=== PATIENT | female | born 1960 | race Two or more races ===

== ENCOUNTER 2022-09-21 12:42 | Inpatient (IN) | payer MEDICARE, OTHER ==
[~2022-09-21] VITALS: Ht 134.6 cm; Wt 48.5 kg
--- NOTE | 2022-09-21 12:54 | NUR ---
ESTABLISHED EV ACCESS RIGHT AC 20G, BLOOD DRAWN AND SENT TO LAB INCLUDING CULTURES.
--- NOTE | 2022-09-21 12:56 | NUR ---
RECTAL TEMP 104.0 MD MADE AWARE.
--- NOTE | 2022-09-21 13:01 | NUR ---
DR. SAUCEDO AT BEDSIDE
--- NOTE | 2022-09-21 13:06 | NUR ---
COVID SWAB COLLECTED AND SENT TO LAB
[2022-09-21 13:24] LABS: BASOPHILS # (AUTO) 0.2 K/uL (0.0-0.2); BASOPHILS % (AUTO) 1.8 % (0.0-2.0); EOSINOPHILS % (AUTO) 0.3 % (0.0-6.0); HEMATOCRIT 30 % (33-45); HEMOGLOBIN 9.5 g/dL (11.5-14.8); LYMPHOCYTES # (AUTO) 4.2 K/uL (0.8-4.8); LYMPHOCYTES % (AUTO) 41.2 % (20.0-44.0); MEAN CORPUSCULAR HGB CONC 32 g/dl (31.0-36.0); MEAN CORPUSCULAR VOLUME 101 fL (82-100); MONOCYTES # (AUTO) 0.7 K/uL (0.1-1.30); MONOCYTES % (AUTO) 6.5 % (2.0-12.0); NEUTROPHILS # (AUTO) 5.1 K/uL (1.8-8.9); NEUTROPHILS % (AUTO) 50.2 % (43.0-81.0); PLATELET COUNT (AUTO) 451 K/uL (150-450); RED BLOOD CELL COUNT(AUTO) 2.97 MIL/uL (4.0-5.2); WHITE BLOOD COUNT (AUTO) 10.2 K/uL (4.3-11.0)
[2022-09-21 13:25] LABS: CALCIUM, SERUM 9.7 mg/dL (8.5-10.1); CARBON DIOXIDE 27 mmol/L (21-32); CHLORIDE 109 mmol/L (98-107); GLUCOSE 101 mg/dL (74-106); POTASSIUM 4.9 mmol/L (3.5-5.1); SODIUM SERUM 147 mmol/L (136-145); UREA NITROGEN, BLOOD 40 mg/dL (7-18)
[2022-09-21] MEDS ORDERED: PIPERACILLIN /TAZOBACTAM 3.375 G in IV D5W 50 ML IV ONE (13:30)
[2022-09-21] MEDS ORDERED: VANCOMYCIN 1 GM in IV D5W 250 ML IV ONE (13:30)
[2022-09-21 13:31] LABS: ALANINE AMINOTRANSFERASE 88 U/L (12-78); ALBUMIN 2.4 g/dL (3.4-5.0); ALKALINE PHOSPHATASE 311 U/L (46-116); ASPARTATE AMINOTRANSFERASE 561 U/L (15-37); BILIRUBIN,DIRECT 0.3 mg/dL (0.0-0.2); BILIRUBIN,TOTAL 0.6 mg/dL (0.2-1.0); TOTAL PROTEIN, SERUM 7.9 g/dL (6.4-8.2)
[2022-09-21] MEDS ORDERED: PROM6.256 PO (13:47)
[2022-09-21] MEDS ORDERED: BETH50TA2 PO (13:47)
[2022-09-21] MEDS ORDERED: AMLO5TAB4 PO (13:47)
[2022-09-21] MEDS ORDERED: BENZ1TAB7 PO (13:47)
[2022-09-21] MEDS ORDERED: OMEP20CA15 PO (13:47)
[2022-09-21] MEDS ORDERED: LEVO75TA PO (13:47)
--- NOTE | 2022-09-21 13:49 | NUR ---
CALCITONIN 3.57 RN & MADE AWARE
--- NOTE | 2022-09-21 14:29 | NUR ---
URINE SAMPLE OBTAINED
--- NOTE | 2022-09-21 14:39 | NUR ---
[facility] CALLED STOCK PARTS FABRICATOR PAGED.
[2022-09-21 15:26] LABS: BILIRUBIN,URINE NEGATIVE (NEGATIVE); COLOR,URINE YELLOW (YELLOW); LEUKOCYTE ESTERASE ,URINE NEGATIVE (NEGATIVE); NITRITE, URINE NEGATIVE (NEGATIVE); PROTEIN,URINE 1+ mg/dl (NEGATIVE); UGLUCOSE NEGATIVE (NEGATIVE); UROBILINOGEN,URINE 0.2 EU/dL (0.2)
--- NOTE | 2022-09-21 15:30 | NUR ---
DR SAUCEDO SPEAKING W/ DR SANCHEZ
[2022-09-21 15:48] LABS: RBC,URINE 0-2 /HPF (0-2)
[2022-09-21 15:49] LABS: BACTERIA,URINE Few /HPF (None Seen); SQUAMOUS EPITHELIAL CELL,UR Few /HPF (None Seen)
--- NOTE | 2022-09-21 15:59 | NUR ---
GOT BED 112 ADMITTING INFORMED.
--- NOTE | 2022-09-21 16:23 | NUR ---
REPORT GIVEN TO NAZIA FOR HYUN
--- NOTE | 2022-09-21 16:37 | NUR ---
PT TRANSFERRED TO [facility] VIA MARQUIS ACLS PROTOCOL. WARM HAND OFF GIVEN TO RN ASSIGNED.
[2022-09-21 17:00] VITALS: BP 89/52
--- NOTE | 2022-09-21 19:40 | NUR ---
RN CLOSING NOTE PATIENT RECEIVED FROM ER REPORT TAKEN FROM ER NURSE SILKE, PATIENT WITH RAC #20 INTACT, PATENT AND FLUSHING. PATIENT ON NONREBREATHER MASK 15 LITER OO2 SAT 97%. NO SKIN ISSUE JUST SACRAL REDNESS LOOKS LIKE DIAPER RASH. PHOTO TAKEN AND PLACED IN PATIENT'S CHART. PATIENT WITH DOWN SYNDROME A/O X0 ONLY OPEN EYED. PATIENT ON RESTRAINS SINCE SHE ARRIVED FROM ER. THE ER NURSE SILKE EXPLAINED THAT SHE REMOVES THE LINES WITHOUT RESTRAINS. ALL FALL AND SAFETY PRECAUTIONS IMPLEMENTED AND WILL ENDORSE THE PATIENT TO THE RED HAT OPEN STACK ADMINISTRATOR NURSE FOR HYUN.
--- NOTE | 2022-09-21 19:45 | NUR ---
TACTICAL DEBRIEFER OFFICER OPENING NOTES PATIENT SLEEPING IN BED, EASILY AWAKENED, PATIENT OPENS EYES AND SMILES WHEN NAME CALLED BUT NO VERBAL RESPONSE, PATIENT HAS DOWN SYNDROME. PATIENT STABLE ON NON-REBREATHER 15 L, NO S/S OF DISTRESS OR SOB NOTED, BREATHING EVEN AND UNLABORED. IV ACCESS ON RAC #20G INTACT AND FLUSHING WELL. AWAITING MD ORDERS. BILATERAL SOFT WRIST RESTRAINTS IN PLACE. SAFETY MEASURES IN PLACE: CALL LIGHT WITHIN REACH, SIDE RAILS UP X 3, BED LOCKED IN LOWEST POSITION, HOB ELEVATED, BED ALARM ON. WILL CONTINUE TO MONITOR PATIENT
[2022-09-21 20:00] VITALS: BP 97/50
[2022-09-21] MEDS ORDERED: MAGNESIUM HYDROXIDE 30 ML UDC PO PRN (20:30)
[2022-09-21] MEDS ORDERED: ACETAMINOPHEN 325 MG TABLET PO PRN (20:30)
[2022-09-21] MEDS ORDERED: ONDANSETRON HCL/PF 4 MG/2 ML VIAL IVP PRN (20:30)
[2022-09-21] MEDS ORDERED: Z GUARD REMEDY 4 OZ OINT TP PRN (20:30)
[2022-09-21] MEDS ORDERED: MAG HYDROX/AL HYDROX/SIMETH 30 ML UDC PO PRN (20:30)
[2022-09-21] MEDS: IV NS 0.9% 1,000 ML IV PRN (20:33)
[2022-09-21] MEDS ORDERED: CEFEPIME 1 GM in IV D5W 50 ML IV ONE (21:00)
--- NOTE | 2022-09-21 21:30 | NUR ---
SPREADING MACHINE OPERATOR NOTE SCHEDULED MAXIPIME 1 GM NOT IN CASSETTE, FAXED ORDER TO NURSING ELECTRIC SIGN ASSEMBLER, AWAITING MED
[2022-09-21] MEDS: ENOXAPARIN SODIUM 30 MG/0.3 ML DISP.SYRIN SQ SCH (22:20)
[2022-09-21] MEDS ORDERED: CEFEPIME 1 GM VIAL ONE (22:23)
--- NOTE | 2022-09-21 22:28 | NUR ---
REFINERY OPERATOR REFORMING UNIT NOTE SCHOOL SERVICES OFFICER ELSA BROUGHT MAXIPIME 1 GM FROM ER. WILL ADMINISTER ORDERED
[2022-09-22] VITALS: BP 98/50
[2022-09-22 04:00] VITALS: BP 105/62
--- NOTE | 2022-09-22 06:52 | NUR ---
RETAIL SALES PROFESSIONAL CLOSING NOTE PATIENT AWAKE IN BED, PATIENT OPENS EYES AND SMILES WHEN NAME CALLED BUT NO VERBAL RESPONSE, PATIENT HAS DOWN SYNDROME. PATIENT STABLE ON NON-REBREATHER 15 L, NO S/S OF DISTRESS OR SOB NOTED, BREATHING EVEN AND UNLABORED. IV ACCESS ON RAC #20G INTACT AND INFUSING NS @ 75 ML/HR. BILATERAL SOFT WRIST RESTRAINTS IN PLACE. NO SIGNIFICANT CHANGES THIS SHIFT, MEDICATIONS GIVEN ORDERED. SAFETY MEASURES IN PLACE: CALL LIGHT WITHIN REACH, SIDE RAILS UP X 3, BED LOCKED IN LOWEST POSITION, HOB ELEVATED, BED ALARM ON. WILL ENDORSE TO DAYSHIFT RN FOR CONTINUITY OF CARE
--- NOTE | 2022-09-22 07:12 | NUR ---
COPIER FIELD SERVICE TECHNICIAN OPENING NOTES Received pt awake in bed. Non verbal and unable to follow command, but pt opens eyes and smiles when you say her name. No signs os pain or discomfort at this time. Pt is currently on 15L non rebreather mask and tolerating it well. IV access on RAC 20G patent and intact with IVF running NS @75cc/hr. HOB elevated to 30-45 degrees. Siderails up at all times. Bed at it's lowest setting and locked. Call light within reach. Will continue to monitor.
[2022-09-22] MEDS: PANTOPRAZOLE 40 MG TABLET.DR PO SCH (07:28)
[2022-09-22] MEDS: LEVOTHYROXINE SODIUM 75 MCG TABLET PO SCH (07:28)
[2022-09-22 08:00] VITALS: BP 106/58
[2022-09-22] MEDS: BETHANECHOL CHLORIDE (25 MG) 25 MG TABLET PO SCH (08:49)
[2022-09-22] MEDS: BENZTROPINE MESYLATE (1 MG) 1 MG TABLET PO SCH (08:49)
[2022-09-22 09:03] LABS: BASOPHILS # (AUTO) 0.3 K/uL (0.0-0.2); BASOPHILS % (AUTO) 2.3 % (0.0-2.0); EOSINOPHILS % (AUTO) 1.1 % (0.0-6.0); HEMATOCRIT 27 % (33-45); HEMOGLOBIN 8.7 g/dL (11.5-14.8); LYMPHOCYTES # (AUTO) 2.5 K/uL (0.8-4.8); LYMPHOCYTES % (AUTO) 22.2 % (20.0-44.0); MEAN CORPUSCULAR HGB CONC 32 g/dl (31.0-36.0); MEAN CORPUSCULAR VOLUME 103 fL (82-100); MONOCYTES # (AUTO) 0.9 K/uL (0.1-1.30); MONOCYTES % (AUTO) 8.3 % (2.0-12.0); NEUTROPHILS # (AUTO) 7.4 K/uL (1.8-8.9); NEUTROPHILS % (AUTO) 66.1 % (43.0-81.0); PLATELET COUNT (AUTO) 400 K/uL (150-450); RED BLOOD CELL COUNT(AUTO) 2.66 MIL/uL (4.0-5.2); WHITE BLOOD COUNT (AUTO) 11.2 K/uL (4.3-11.0)
[2022-09-22 09:07] LABS: CALCIUM, SERUM 8.9 mg/dL (8.5-10.1); CREATININE 2.4 mg/dL (0.6-1.3); PHOSPHORUS 6.9 mg/dL (2.5-4.9); POTASSIUM 4.6 mmol/L (3.5-5.1)
[2022-09-22 09:20] LABS: THYROID STIMULATING HORMONE 2.002 uIU/mL (0.358-3.74)
[2022-09-22] MEDS: CEFEPIME 1 GM in IV D5W 50 ML IV SCH ×2 (10:06→20:29)
[2022-09-22] MEDS: IV NS 0.9% 1,000 ML IV PRN (10:35)
[2022-09-22 12:00] VITALS: BP 104/54
[2022-09-22 16:00] VITALS: BP 102/44
[2022-09-22] MEDS: IV 1/2NS 1000 ML 1,000 ML IV SCH (16:06)
--- NOTE | 2022-09-22 18:30 | NUR ---
EXECUTIVE ACCOUNT MANAGER CLOSING NOTES All due meds and tx given as ordered. Pt tolerated everything well. All needs attended to. Pt is currently on simple mask 10L and tolerating it well. IV access on RAC 20g patent and intact running IVF 1/2 NS @ 75cc/hr. HOB elevated to 30-45 degrees. Siderails up at all times. Call light within reach. Will endorse to oncoming nurse.
[2022-09-22 20:00] VITALS: BP 102/56
[2022-09-22] MEDS: ENOXAPARIN SODIUM 30 MG/0.3 ML DISP.SYRIN SQ SCH (20:29)
[2022-09-23] VITALS (7 sets, daily range): BP systolic 83–97; BP diastolic 47–65
[2022-09-23] MEDS: IV 1/2NS 1000 ML 1,000 ML IV SCH ×2 (05:20→19:10)
[2022-09-23] MEDS: LEVOTHYROXINE SODIUM 75 MCG TABLET PO SCH (06:24)
[2022-09-23] MEDS: PANTOPRAZOLE 40 MG TABLET.DR PO SCH (07:30)
--- NOTE | 2022-09-23 07:30 | NUR ---
RN notes Morning med hold due to pt being NPO
[2022-09-23 08:12] LABS: CALCIUM, SERUM 8.5 mg/dL (8.5-10.1); CREATININE 2.1 mg/dL (0.6-1.3)
--- NOTE | 2022-09-23 09:15 | NUR ---
WOUND CARE CONSULT: PT PRESENTS WITH RASH TO PERINEUM AND BUTTOCKS, PRESENT ON ADMISSION. RECOMMENDATIONS MADE FOR SKIN PROTECTION. DISCUSSED WITH NURSING STAFF. MD IN AGREEMENT WITH PLAN OF CARE.
[2022-09-23] MEDS: BETHANECHOL CHLORIDE (25 MG) 25 MG TABLET PO SCH (09:22)
[2022-09-23] MEDS: BENZTROPINE MESYLATE (1 MG) 1 MG TABLET PO SCH (09:25)
[2022-09-23] MEDS: CEFEPIME 1 GM in IV D5W 50 ML IV SCH ×3 (10:00→21:05)
[2022-09-23] MEDS ORDERED: VANCOMYCIN 1 GM in IV D5W 250 ML IV SCH (14:00)
[2022-09-23] MEDS: CLOTRIMAZOLE 1% 15 GM TUBE TP SCH (17:19)
--- NOTE | 2022-09-23 19:30 | NUR ---
RN opening notes Pt is laying in bed comfortably watching TV. Pt is alert and orientedX1. On 5 L NC. No SOB. No S/S of distress noted. Tele monitor showed S. rhytm. IV site at RAC# 20 is clean, intact and infusing well 1/2 NS @ 75 ml/hr. purewick is inplaced. Bilateral soft wrists restraint is inplaced, skin is warm to touch, circulation is check Q 2hr. safety precautions is maintained. bed at low position, brakes locked, side rails upsX3, hob elevated and call light is within reach. will continue to monitor.
[2022-09-23] MEDS: ENOXAPARIN SODIUM 30 MG/0.3 ML DISP.SYRIN SQ SCH (20:56)
[2022-09-24] VITALS (7 sets, daily range): BP systolic 96–115; BP diastolic 51–74
[2022-09-24 06:08] LABS: ALBUMIN 1.9 g/dL (3.4-5.0); BILIRUBIN,TOTAL 0.7 mg/dL (0.2-1.0); CALCIUM, SERUM 8.8 mg/dL (8.5-10.1); CREATININE 1.9 mg/dL (0.6-1.3); MAGNESIUM 2.9 mg/dL (1.8-2.4); PHOSPHORUS 4.6 mg/dL (2.5-4.9); POTASSIUM 4.1 mmol/L (3.5-5.1); TOTAL PROTEIN, SERUM 6.6 g/dL (6.4-8.2)
[2022-09-24 06:11] LABS: BASOPHILS # (AUTO) 0.1 K/uL (0.0-0.2); BASOPHILS % (AUTO) 0.6 % (0.0-2.0); EOSINOPHILS % (AUTO) 1.1 % (0.0-6.0); HEMATOCRIT 25 % (33-45); HEMOGLOBIN 7.7 g/dL (11.5-14.8); LYMPHOCYTES # (AUTO) 2.4 K/uL (0.8-4.8); LYMPHOCYTES % (AUTO) 24.2 % (20.0-44.0); MEAN CORPUSCULAR HGB CONC 32 g/dl (31.0-36.0); MEAN CORPUSCULAR VOLUME 105 fL (82-100); MONOCYTES # (AUTO) 0.7 K/uL (0.1-1.30); MONOCYTES % (AUTO) 6.5 % (2.0-12.0); NEUTROPHILS # (AUTO) 6.8 K/uL (1.8-8.9); NEUTROPHILS % (AUTO) 67.6 % (43.0-81.0); PLATELET COUNT (AUTO) 362 K/uL (150-450); RED BLOOD CELL COUNT(AUTO) 2.34 MIL/uL (4.0-5.2); WHITE BLOOD COUNT (AUTO) 10.1 K/uL (4.3-11.0)
[2022-09-24] MEDS: LEVOTHYROXINE SODIUM 75 MCG TABLET PO SCH (06:31)
[2022-09-24] MEDS: PANTOPRAZOLE 40 MG TABLET.DR PO SCH (06:32)
--- NOTE | 2022-09-24 06:47 | NUR ---
RN closing notes Pt is resting in bed comfortably. Pt is alert and orientedX1. On 5 L NC. No SOB. No S/S of distress noted. Tele monitor showed S. rhytm. Routine meds were given as ordered. IV site at RAC# 20 is clean, intact and infusing well 1/2 NS @ 75 ml/hr. purewick is inplaced. Bilateral soft wrists restraint is inplaced, skin is warm to touch, circulation is check Q 2hr. Kept Pt clean, dry and comfortable. safety precautions is maintained. bed at low position, brakes locked, side rails upsX3, hob elevated and call light is within reach. will endorse to am nurse for HYUN.
[2022-09-24] MEDS: BENZTROPINE MESYLATE (1 MG) 1 MG TABLET PO SCH (09:00)
[2022-09-24] MEDS: BETHANECHOL CHLORIDE (25 MG) 25 MG TABLET PO SCH (09:00)
[2022-09-24] MEDS: IV 1/2NS 1000 ML 1,000 ML IV SCH ×2 (10:29→22:17)
[2022-09-24] MEDS: CLOTRIMAZOLE 1% 15 GM TUBE TP SCH ×2 (10:34→17:27)
--- NOTE | 2022-09-24 10:39 | NUR ---
Dietitian at bedside, Report called family member to see badeline diet. was unable to get in touch with them.
[2022-09-24] MEDS: CEFEPIME 1 GM in IV D5W 50 ML IV SCH ×2 (11:16→21:19)
--- NOTE | 2022-09-24 14:46 | NUR ---
PT resting comfortably, in no acute distress at present, In stable condition. non-verbal, appears to be rested. Will continue to monitor status. Addendum: 09/24/22 at 1449 by REGISTRY [facility] INPATIENT RN1 RN Amended: Links added.
--- NOTE | 2022-09-24 19:30 | NUR ---
TEST AND BALANCE ENGINEER OPENING NOTES - RECEIVED PATIENT AWAKE IN BED. A/O X0, MAKES SOUNDS. BREATHING EVEN AND NON-LABORED. ON O2 AT 5LPM VIA NASAL CANULA. NOT IN APPARENT DISTRESS. NO S/S OF PAIN OR DISCOMFORT AT THIS TIME. ON TELE MONITOR READING SINUS RHYTHM AT 60 BPM. HAS RIGHT ANTECUBITAL IV ACCESS #20G WITH 0.45% NS RUNNING AT 75 ML/HR. NO S/S OF INFILTRATION NOTED. HAS PUREWICK CONNECTED TO CONTINUOUS SUCTION WITH CLEAR YELLOW URINE. BILATERAL SOFT WRIST RESTRAINTS IN PLACE. SAFETY PRECAUTIONS OBSERVED: BED LOCKED AND IN LOW POSITION, SIDE RAILS UP X3, CALL LIGHT WITHIN REACH. WILL CONTINUE PLAN OF CARE.
[2022-09-24] MEDS: ENOXAPARIN SODIUM 30 MG/0.3 ML DISP.SYRIN SQ SCH (21:16)
[2022-09-24 23:33] LABS: BASOPHILS % (MANUAL) 0 % (0.0-2.0); EOSINOPHILS % (MANUAL) 1 % (0-4); LYMPHOCYTES % (MANUAL) 25 % (16-48); MONOCYTES % (MANUAL) 4 % (0-11.0); NEUTROPHILS % (MANUAL) 70 (42-76)
[2022-09-25] VITALS: BP 104/62
[2022-09-25 04:00] VITALS: BP 99/54
[2022-09-25 06:36] LABS: BASOPHILS # (AUTO) 0.1 K/uL (0.0-0.2); HEMATOCRIT 24 % (33-45); HEMOGLOBIN 7.3 g/dL (11.5-14.8); LYMPHOCYTES % (AUTO) 41.6 % (20.0-44.0); MEAN CORPUSCULAR HGB CONC 31 g/dl (31.0-36.0); MEAN CORPUSCULAR VOLUME 109 fL (82-100); MONOCYTES # (AUTO) 0.8 K/uL (0.1-1.30); MONOCYTES % (AUTO) 8.1 % (2.0-12.0); NEUTROPHILS # (AUTO) 4.7 K/uL (1.8-8.9); NEUTROPHILS % (AUTO) 48.3 % (43.0-81.0); PLATELET COUNT (AUTO) 337 K/uL (150-450); RED BLOOD CELL COUNT(AUTO) 2.19 MIL/uL (4.0-5.2); WHITE BLOOD COUNT (AUTO) 9.6 K/uL (4.3-11.0)
--- NOTE | 2022-09-25 06:48 | NUR ---
BAKER CHEF CLOSING NOTES - PATIENT AWAKE. NO ACUTE DISTRESS THROUGHOUT THE NIGHT. MOANS AND SCREAMS. TOLERATING O2 AT 3LPM WELL, NO SOB OR NOTED. AFEBRILE. ON TELE MONITOR READING SINUS RHYTHM AT 60 BPM. RIGHT ANTECUBITAL IV ACCESS #20G INTACT, PATENT AND FLUSHING. CLEAR DARK YELLOW URINE NOTED. BILATERAL ARMS CHECKED FOR COLOR AND CIRCULATION. ALL DUE MEDS GIVEN AND NEEDS ATTENDED. SAFETY PRECAUTIONS MAINTAINED. WILL ENDORSE TO NEXT SHIFT FOR HYUN.
[2022-09-25] MEDS: LEVOTHYROXINE SODIUM 75 MCG TABLET PO SCH (07:00)
[2022-09-25] MEDS: PANTOPRAZOLE 40 MG TABLET.DR PO SCH (07:30)
[2022-09-25 07:40] LABS: ALBUMIN 1.7 g/dL (3.4-5.0); BILIRUBIN,TOTAL 0.6 mg/dL (0.2-1.0); CALCIUM, SERUM 8.6 mg/dL (8.5-10.1); CREATININE 1.5 mg/dL (0.6-1.3); MAGNESIUM 2.8 mg/dL (1.8-2.4); POTASSIUM 4.3 mmol/L (3.5-5.1); TOTAL PROTEIN, SERUM 6.1 g/dL (6.4-8.2)
[2022-09-25 08:00] VITALS: BP 104/52
[2022-09-25] MEDS: IV D5/0.45 NACL 1,000 ML IV SCH ×2 (08:30→21:38)
[2022-09-25] MEDS: BETHANECHOL CHLORIDE (25 MG) 25 MG TABLET PO SCH (09:00)
[2022-09-25] MEDS: BENZTROPINE MESYLATE (1 MG) 1 MG TABLET PO SCH (09:00)
[2022-09-25] MEDS: CEFEPIME 1 GM in IV D5W 50 ML IV SCH ×2 (09:30→21:07)
[2022-09-25] MEDS: CLOTRIMAZOLE 1% 15 GM TUBE TP SCH ×2 (09:34→18:38)
--- NOTE | 2022-09-25 10:00 | NUR ---
pt. seen bt ST recommend pureed diet md notified.
[2022-09-25 12:00] VITALS: BP 104/52
[2022-09-25] MEDS ORDERED: DEXTROSE 50%-WATER 50 ML DISP.SYRIN IVP ONE (13:00)
[2022-09-25 16:00] VITALS: BP 104/52
[2022-09-25 17:11] LABS: LYMPHOCYTES % (MANUAL) 49 % (16-48); MONOCYTES % (MANUAL) 11 % (0-11.0); NEUTROPHILS % (MANUAL) 40 (42-76)
--- NOTE | 2022-09-25 19:30 | NUR ---
STRUCTURAL STEEL TRADES WORKER NOTE RECEIVED PATIENT IN BED, WITH HOB ELEVATED, ASLEEP BUT EASY TO AROUSE AND RESPONDS TO VERBAL AND TACTILE STIMULI. AFEBRILE AND NOT IN ANY FORM OF ACUTE DISTRESS. ON O2 INHALATION VIA NASAL CANNULA AT 3LPM. ON TELE MONITORING WITH CURRENT READING OF SR. WITH IV ACCESS ON RAC AND VINICIUS MIDLINE RUNNING WITH D5 1/2 NS AT 75ML/HR. SAFETY MEASURES IN PLACE. KEPT BED IN LOCKED AND IN LOW POSITION. SIDE RAILS UP X2. CALL LIGHT WITHIN EASY REACH.
[2022-09-25 20:00] VITALS: BP 97/60
--- NOTE | 2022-09-25 21:20 | NUR ---
PHARMACIST NOTE PATIENT'S LATEST HGB IS 7.3 NOTIFIED CN AND ORNAMENTAL PAINTER HIMA AND ORDERED TO HOLD LOVENOX FOR NOW AND ORDERED FOR STOOL OB. ORDER NOTE AND CARRIED OUT.
[2022-09-26] VITALS: BP 100/70
[2022-09-26 04:00] VITALS: BP 104/61
[2022-09-26 06:13] LABS: CALCIUM, SERUM 8.9 mg/dL (8.5-10.1); CREATININE 1.3 mg/dL (0.6-1.3); POTASSIUM 4.8 mmol/L (3.5-5.1)
--- NOTE | 2022-09-26 06:30 | NUR ---
MISSION WORKER CLOSING NOTE PATIENT IN BED, WITH HOB ELEVATED, ASLEEP BUT EASY TO AROUSE AND RESPONDS TO VERBAL AND TACTILE STIMULI. AFEBRILE AND NOT IN ANY FORM OF ACUTE DISTRESS. ON O2 INHALATION VIA NASAL CANNULA AT 3LPM. ON TELE MONITORING WITH CURRENT READING OF SR 61. WITH IV ACCESS ON RAC AND VINICIUS MIDLINE RUNNING WITH D5 1/2 NS AT 75ML/HR. MEDICATED ORDERED. CONTINUOUS ON IV ATB, MONITOR FOR ANY ADVERSE REACTION. SAFETY MEASURES IN PLACE. KEPT BED IN LOCKED AND IN LOW POSITION. SIDE RAILS UP X2. CALL LIGHT WITHIN EASY REACH. ALL NURSING NEEDS ATTENDED. ENDORSED TO INCOMING SHIFT FOR CONTINUITY OF CARE.
[2022-09-26] MEDS: LEVOTHYROXINE SODIUM 75 MCG TABLET PO SCH (06:59)
[2022-09-26 08:00] VITALS: BP 107/56
[2022-09-26] MEDS: BENZTROPINE MESYLATE (1 MG) 1 MG TABLET PO SCH (08:37)
[2022-09-26] MEDS: BETHANECHOL CHLORIDE (25 MG) 25 MG TABLET PO SCH (08:38)
[2022-09-26] MEDS: PANTOPRAZOLE 40 MG TABLET.DR PO SCH (08:38)
[2022-09-26] MEDS: CLOTRIMAZOLE 1% 15 GM TUBE TP SCH ×2 (08:39→17:01)
[2022-09-26] MEDS: CEFEPIME 1 GM in IV D5W 50 ML IV SCH ×2 (09:34→21:21)
[2022-09-26 12:00] VITALS: BP 103/66
--- NOTE | 2022-09-26 14:51 | NUR ---
telecommunications clerk note ambulance arrived but bp 89/[address] elder with order to hold discharge
[2022-09-26 15:50] LABS: OCCULT BLOOD STOOL NEGATIVE (NEGATIVE)
[2022-09-26 16:00] VITALS: BP 98/56
[2022-09-26] MEDS: IV D5/0.45 NACL 1,000 ML IV PRN (17:00)
--- NOTE | 2022-09-26 19:00 | NUR ---
PATIENT RECEIVED FROM DAY SHIFT NURSE. PATIENT SLEEPING BUT AROUSABLE. VITAL SIGNS STABLE. BP 100/56. PATIENT DISCHARGE HOLD DUE TO LOW BP PER NURSING REPORT. NO SIGNS OF SHORTNESS OF BREATH NAUSEA OR VOMITING NOTED. PATIENT DENIES ANY PAIN AT THIS TIME. VINICIUS MIDLINE PATENT AND INTACT. WILL CONTINUE TO MONITOR.
[2022-09-26 20:01] VITALS: BP_SYST 100; BP_SYST 107; BP_DIAS 56
[2022-09-27] VITALS: BP 107/62
[2022-09-27 04:00] VITALS: BP 107/62
[2022-09-27 06:11] LABS: CREATININE 1.4 mg/dL (0.6-1.3); POTASSIUM 3.8 mmol/L (3.5-5.1)
--- NOTE | 2022-09-27 07:11 | NUR ---
REPORT GIVEN TO INCOMING NURSE. PATIENT IN STABLE CONDITION. VITAL SIGNS STABLE. VINICIUS MIDLINE PATENT AND INTACT WITH IV FLUID RUNNING. PT ON 3 LITER O2 SAT 96%. NO SIGNS OF SHORTNESS OF BREATH NOTED. PATIENT RESTING COMFORTABLY IN BED. NO ACUTE DISTRESS . HGB 7.3 ON 09/26. AWAITING LABS FOR TODAY READING. PATIENT DUE FOR DISCHARGE. NO ACUTE DISTRESS NOTED.
--- NOTE | 2022-09-27 07:19 | NUR ---
PUBLIC RELATIONS REPRESENTATIVE OPENING NOTE RECEIVED PATIENT IN BED, WITH HOB ELEVATED, ASLEEP BUT EASY TO AROUSE AND RESPONDS TO VERBAL AND TACTILE STIMULI. AFEBRILE AND NOT IN ANY FORM OF ACUTE DISTRESS. ON O2 INHALATION VIA NASAL CANNULA AT 3LPM. ON TELE MONITORING. WITH IV ACCESS VINICIUS MIDLINE RUNNING WITH D5 1/2 NS AT 75ML/HR. SAFETY MEASURES IN PLACE. KEPT BED IN LOCKED AND IN LOW POSITION. SIDE RAILS UP X2. CALL LIGHT WITHIN EASY REACH.
[2022-09-27 08:00] VITALS: BP 110/59
[2022-09-27] MEDS: PANTOPRAZOLE 40 MG TABLET.DR PO SCH (08:13)
[2022-09-27] MEDS: BETHANECHOL CHLORIDE (25 MG) 25 MG TABLET PO SCH (08:13)
[2022-09-27] MEDS: BENZTROPINE MESYLATE (1 MG) 1 MG TABLET PO SCH (08:13)
[2022-09-27] MEDS: LEVOTHYROXINE SODIUM 75 MCG TABLET PO SCH (08:14)
[2022-09-27] MEDS: CLOTRIMAZOLE 1% 15 GM TUBE TP SCH ×2 (08:15→16:05)
[2022-09-27] MEDS: CEFEPIME 1 GM in IV D5W 50 ML IV SCH ×2 (10:30→22:03)
[2022-09-27] MEDS: IV D5/0.45 NACL 1,000 ML IV PRN (15:11)
[2022-09-27 16:00] VITALS: BP 104/59
--- NOTE | 2022-09-27 18:31 | NUR ---
LOCAL TANKER TRUCK DRIVER CLOSING NOTE PATIENT IN BED, WITH HOB ELEVATED, ASLEEP BUT EASY TO AROUSE AND RESPONDS TO VERBAL AND TACTILE STIMULI. AFEBRILE AND NOT IN ANY FORM OF ACUTE DISTRESS. ON O2 INHALATION VIA NASAL CANNULA AT 3LPM. WITH IV ACCESS ON VINICIUS MIDLINE RUNNING WITH D5 1/2 NS AT 75ML/HR. MEDICATED ORDERED. SAFETY MEASURES IN PLACE. KEPT BED IN LOCKED AND IN LOW POSITION. SIDE RAILS UP X2. CALL LIGHT WITHIN EASY REACH. ALL NURSING NEEDS ATTENDED. RESTRAINT ORDERED TO BE RENEWED AT 2148. ENDORSED TO INCOMING SHIFT FOR CONTINUITY OF CARE.
--- NOTE | 2022-09-27 19:20 | NUR ---
noc rn opening note received patient in bed, eyes open, non-verbal. no s/s of apparent distress in 3lpm of o2 via nc. not exhibiting pain via flacc. Noted to be on bilateral soft wrist restraints. VINICIUS midline running D5 1/2 ns @75mls/hr. safety in place. will continue with patient's plan of care.
[2022-09-27 20:00] VITALS: BP 122/92
[2022-09-28 05:00] VITALS: BP 123/67
[2022-09-28] MEDS: IV D5/0.45 NACL 1,000 ML IV PRN ×2 (06:41→22:34)
--- NOTE | 2022-09-28 06:45 | NUR ---
noc rn closing note patient in bed, quiet at this time. bilateral soft wrist in place at this time with restraint vacations. no s/s of apparent distress on 3lpm of o2 via nc. not exhibiting pain via flacc. VINICIUS midline running D5 1/2 ns @75mls/hr. all needs attended. all scheduled medication administered. safety in place. will endorse to morning shift rn for continuity of patient care.
[2022-09-28] MEDS: LEVOTHYROXINE SODIUM 75 MCG TABLET PO SCH (07:00)
[2022-09-28 07:08] LABS: ALBUMIN 1.6 g/dL (3.4-5.0); BILIRUBIN,TOTAL 0.4 mg/dL (0.2-1.0); CALCIUM, SERUM 9.3 mg/dL (8.5-10.1); CREATININE 1.4 mg/dL (0.6-1.3); MAGNESIUM 2.1 mg/dL (1.8-2.4); PHOSPHORUS 2.9 mg/dL (2.5-4.9); POTASSIUM 3.7 mmol/L (3.5-5.1); TOTAL PROTEIN, SERUM 5.9 g/dL (6.4-8.2)
[2022-09-28 07:15] LABS: BASOPHILS # (AUTO) 0.1 K/uL (0.0-0.2); EOSINOPHILS % (AUTO) 0.8 % (0.0-6.0); HEMATOCRIT 26 % (33-45); HEMOGLOBIN 8.1 g/dL (11.5-14.8); LYMPHOCYTES % (AUTO) 40.4 % (20.0-44.0); MEAN CORPUSCULAR HGB CONC 31 g/dl (31.0-36.0); MEAN CORPUSCULAR VOLUME 107 fL (82-100); MONOCYTES # (AUTO) 0.4 K/uL (0.1-1.30); MONOCYTES % (AUTO) 5.2 % (2.0-12.0); NEUTROPHILS # (AUTO) 3.8 K/uL (1.8-8.9); NEUTROPHILS % (AUTO) 51.6 % (43.0-81.0); PLATELET COUNT (AUTO) 319 K/uL (150-450); RED BLOOD CELL COUNT(AUTO) 2.46 MIL/uL (4.0-5.2); WHITE BLOOD COUNT (AUTO) 7.4 K/uL (4.3-11.0)
[2022-09-28] MEDS: PANTOPRAZOLE 40 MG TABLET.DR PO SCH (07:30)
--- NOTE | 2022-09-28 07:50 | NUR ---
NUTRITION AND DIETETICS INSTRUCTOR OPENING NOTE PATIENT IN BED, WITH HOB ELEVATED, ASLEEP BUT EASY TO AROUSE AND RESPONDS TO VERBAL AND TACTILE STIMULI. AFEBRILE AND NOT IN ANY FORM OF ACUTE DISTRESS. ON O2 INHALATION VIA NASAL CANNULA AT 3LPM, TOLERATING WELL, NO SOB NOTED. WITH IV ACCESS ON VINICIUS MIDLINE RUNNING WITH D5 1/2 NS AT 75ML/HR. PATIENT ON NPO STATUS DUE TO PATIENT FAILED SWALLO EVALUATION. SAFETY MEASURES IN PLACE. KEPT BED IN LOCKED AND IN LOW POSITION. SIDE RAILS UP X2. CALL LIGHT WITHIN EASY REACH. BILATERAL WRIST RESTRAINT ON, CHECK SKIN AND CIRCULATION. PLAN OF CARE CONTINUE.
[2022-09-28] MEDS: BENZTROPINE MESYLATE (1 MG) 1 MG TABLET PO SCH (08:01)
[2022-09-28] MEDS: CLOTRIMAZOLE 1% 15 GM TUBE TP SCH ×2 (08:01→16:12)
[2022-09-28] MEDS: BETHANECHOL CHLORIDE (25 MG) 25 MG TABLET PO SCH (08:02)
[2022-09-28] MEDS: CEFEPIME 1 GM in IV D5W 50 ML IV SCH ×2 (09:00→21:46)
--- NOTE | 2022-09-28 11:16 | NUR ---
MESSAGE LEFT TO AIDA KING DEAN OF INSTRUCTION/CONSERVATOR JAYLIN AND ALSO TO Clive [id number] [phone],WAITING FOR RESPONSE REGARDING PEG CONSENT.
[2022-09-28 13:00] VITALS: BP 131/84
--- NOTE | 2022-09-28 18:18 | NUR ---
RN CLOSING NOTE PATIENT IN BED, WITH HOB ELEVATED, ASLEEP BUT EASY TO AROUSE AND RESPONDS TO VERBAL AND TACTILE STIMULI. AFEBRILE AND NOT IN ANY FORM OF ACUTE DISTRESS. ON O2 INHALATION VIA NASAL CANNULA AT 3LPM, TOLERATING WELL, NO SOB NOTED. WITH IV ACCESS ON VINICIUS MIDLINE RUNNING WITH D5 1/2 NS AT 75ML/HR. PATIENT ON NPO STATUS DUE TO PATIENT FAILED SWALLOW EVALUATION. SAFETY MEASURES IN PLACE. KEPT BED IN LOCKED AND IN LOW POSITION. SIDE RAILS UP X2. CALL LIGHT WITHIN EASY REACH. BILATERAL WRIST RESTRAINT ON, CHECK SKIN AND CIRCULATION. WILL ENDORSE TO NIGHT NURSE FOR HYUN.
--- NOTE | 2022-09-28 19:40 | NUR ---
MS RN OPENING NOTE RECEIVED PATIENT FROM AM NURSE; PATIENT IN BED, HEAD OF BED ELEVATED, NON VERBAL BUT RESPONDS TO VERBAL AND TACTILE STIMULI; ON NASAL CANNULA 3LPM, TOLERATING WELL AND NO RESPIRATORY DISTRESS NOTED; WITH MIDLINE ACCESS ON VINICIUS RUNNING WITH D5 1/2 NS AT 75 ML/HR; ON NPO DUE TO FAILED SWALLOW EVALUATION; ON RESTRAINTS FOR SAFETY; NO SIGNS OF DISTRESS AT THIS TIME; SAFETY MEASURES IMPLEMENTED, BED IN LOW POSITION, LOCKED, SIDE RAILS UP X 4, CALL LIGHT WITHIN REACH; WILL CONTINUE TO MONITOR THROUGHOUT SHIFT
[2022-09-28 20:00] VITALS: BP 116/68
[2022-09-28 22:27] LABS: BAND % (MANUAL) 3 % (0.0-5.0); LYMPHOCYTES % (MANUAL) 18 % (16-48); MONOCYTES % (MANUAL) 4 % (0-11.0); NEUTROPHILS % (MANUAL) 75 (42-76)
[2022-09-29 04:00] VITALS: BP 112/82
[2022-09-29] MEDS: LEVOTHYROXINE SODIUM 75 MCG TABLET PO SCH (06:17)
[2022-09-29 06:43] LABS: BASOPHILS # (AUTO) 0.1 K/uL (0.0-0.2); BASOPHILS % (AUTO) 0.9 % (0.0-2.0); EOSINOPHILS % (AUTO) 1.3 % (0.0-6.0); HEMATOCRIT 27 % (33-45); HEMOGLOBIN 8.3 g/dL (11.5-14.8); LYMPHOCYTES # (AUTO) 2.8 K/uL (0.8-4.8); LYMPHOCYTES % (AUTO) 42.9 % (20.0-44.0); MEAN CORPUSCULAR HGB CONC 31 g/dl (31.0-36.0); MEAN CORPUSCULAR VOLUME 106 fL (82-100); MONOCYTES # (AUTO) 0.3 K/uL (0.1-1.30); MONOCYTES % (AUTO) 5.2 % (2.0-12.0); NEUTROPHILS # (AUTO) 3.3 K/uL (1.8-8.9); NEUTROPHILS % (AUTO) 49.7 % (43.0-81.0); PLATELET COUNT (AUTO) 281 K/uL (150-450); WHITE BLOOD COUNT (AUTO) 6.5 K/uL (4.3-11.0)
--- NOTE | 2022-09-29 06:52 | NUR ---
MS RN CLOSING NOTE PATIENT IN BED, HEAD OF BED ELEVATED, NON VERBAL BUT RESPONDS TO VERBAL AND TACTILE STIMULI; ON NASAL CANNULA 3LPM, TOLERATING WELL AND NO RESPIRATORY DISTRESS NOTED; WITH MIDLINE ACCESS ON VINICIUS RUNNING WITH D5 1/2 NS AT 75 ML/HR; ON NPO DUE TO FAILED SWALLOW EVALUATION; PO MEDICATIONS HELD BECAUSE PATIENT IS ON NPO STATUS; ADMINISTERED IV MEDICATIONS PRESCRIBED; PATIENT'S NEEDS ATTENDED; ON RESTRAINTS FOR SAFETY; NO SIGNS OF DISTRESS AT THIS TIME; MONITORED PATIENT ACCORDINGLY; SAFETY MEASURES IMPLEMENTED, BED IN LOW POSITION, LOCKED, SIDE RAILS UP X 4, CALL LIGHT WITHIN REACH; WILL ENDORSE TO AM NURSE FOR HYUN.
[2022-09-29] MEDS: IV D5/0.45 NACL 1,000 ML IV PRN (07:18)
[2022-09-29 07:23] LABS: ALBUMIN 1.6 g/dL (3.4-5.0); BILIRUBIN,TOTAL 0.4 mg/dL (0.2-1.0); CALCIUM, SERUM 9.4 mg/dL (8.5-10.1); CREATININE 1.3 mg/dL (0.6-1.3); PHOSPHORUS 3.1 mg/dL (2.5-4.9); POTASSIUM 3.4 mmol/L (3.5-5.1); TOTAL PROTEIN, SERUM 5.8 g/dL (6.4-8.2)
--- NOTE | 2022-09-29 07:28 | NUR ---
MS RN NOTE PATIENT IN BED, HEAD OF BED ELEVATED, ON 3L NC NO SOB NOTED AT THIS TIME, WITH MIDLINE ACCESS ON VINICIUS RUNNING WITH D5 1/2 NS AT 75 ML/HR; ON NPO DUE TO FAILED SWALLOW EVALUATION; PO MEDICATIONS HELD BECAUSE PATIENT IS ON NPO STATUS, PATIENT'S NEEDS ATTENDED; ON RESTRAINTS FOR SAFETY; NO SIGNS OF DISTRESS AT THIS TIME.SAFETY MEASURES IMPLEMENTED, BED IN LOW POSITION,AND LOCKED WILL CONT TO MONITOR
[2022-09-29] MEDS: PANTOPRAZOLE 40 MG TABLET.DR PO SCH (07:30)
--- NOTE | 2022-09-29 08:00 | NUR ---
MS RN NOTE ROUNDS MADE ,TURN REPOSITION DONE,NOTED SACRAL WOUND PARTIAL THICKNESS WILL ORDERED [facility] FOR SKIN MANAGEMENT , WOUND CARE CONSULT PATIENT AT RISK FOR FURTHER SKIN BREAKDOWN SECONDARY LOW IMMOBILITY AD DX, HAS SACRAL REDNESS UPON ADMISSION, FRAGILE SKIN, WILL MONITOR CLOSELY
[2022-09-29] MEDS: BETHANECHOL CHLORIDE (25 MG) 25 MG TABLET PO SCH (08:58)
[2022-09-29] MEDS: BENZTROPINE MESYLATE (1 MG) 1 MG TABLET PO SCH (08:58)
[2022-09-29] MEDS: CLOTRIMAZOLE 1% 15 GM TUBE TP SCH ×2 (08:59→16:55)
[2022-09-29 09:10] VITALS: BP 124/82
[2022-09-29] MEDS: POTASSIUM CL. PREMIX PERIPHER. 50 ML IV SCH ×2 (11:14→12:23)
--- NOTE | 2022-09-29 11:43 | NUR ---
MS RN NOTE WOUND CONSULT ORDERED AND [facility] ORDERED WILL F\U
[2022-09-29 12:00] VITALS: BP 126/74
--- NOTE | 2022-09-29 14:35 | NUR ---
,ms dayne bowser CALLED X2 TO AIDA KING LOAN WORKOUT OFFICER BUt PHONE CONSTANTLY CHANEL also called duc Awan from facility patient come from about g tube placement and unable to contact with Aida also left a message ,spoke duc she gave phone number mother Alejandra Maurer left a message ,will f\u , dr Elder at bedside notified that still unable to get consent from Aida , rehabilitation case coordinator , also notified that patient has wound on sacral area and wound consult ordered ,will f\u Addendum: 09/29/22 at 1459 by JOSE JIMÉNEZ RN dr elder notified that patient was abdul Doreenentin po but now hold because on npo Addendum: 09/29/22 at 1848 by JOSE JIMÉNEZ RN DR ELDER AWARE THAT PATENT WAS TAKING COGENTIN PO , AND NOW ON HOLD PATIENT ON NPO STATUS
--- NOTE | 2022-09-29 15:45 | NUR ---
ms rn note per dr Elder ok to get consent from mother coty Maurer, called mother consent obtained for peg placement, called to dr elder stated ok to page to dr byron amin doctor, will f\u
[2022-09-29 16:00] VITALS: BP 126/74
--- NOTE | 2022-09-29 17:46 | NUR ---
tms rn note [facility] applied as ordered keep clean dry made a bm , spoke with dr esteban amin doctor about peg placement procedure ,stated tomorrow after 8am ,spoke with roberto nursing log sorting supervisor ,stated that will call bobby or nurse
--- NOTE | 2022-09-29 18:43 | NUR ---
MS RN NOTE PATIENT IN BED .AWAKE BUT CONFUSED WITH BILATERAL SOFT RESTRAIN IN PLACE, UNABLE TO REMOVE ,PATIENT AT RISK TO REMOVE ALL LINES RT UPPER ARM MID LINE IN PLACE AND FLUSHED WELL , ON NPO AT THIS TIME, ON IVF ORDERED , NPO ,FOR PEG PLACEMENT TOMORROW WITH DR REY RUFFIN , BED IN LOWEST AND LOCKED POSITION , CALL LIGHT WITHIN REACH , WILL CONT TO MONITOR CLOSELY
--- NOTE | 2022-09-29 19:40 | NUR ---
MS RN OPENING NOTE RECEIVED PT IN BED, NONVERBAL, O2 VIA NC @ 3L. NO SOB/DISTRESS NOTED AT THIS TIME. IV ACCESS ON VINICIUS MIDLINE INFUSING D5 1/2 NS @ 75 ML/HR, INTACT AND FLUSHING WELL. HAS BILATERAL SOFT RESTRAINTS IN PLACE. NPO AT THIS TIME DUE TO PEG PLACEMENT TOMORROW MORNING WITH DR LE. SAFETY MEASURES IN PLACE: BED LOCKED AND IN LOWEST POSITION, CALL LIGHT WITHIN REACH, SIDE RAILS UP X3. WILL CONTINUE TO MONITOR.
[2022-09-29 20:00] VITALS: BP 143/86
[2022-09-30 04:00] VITALS: BP 139/72
[2022-09-30] MEDS: IV D5/0.45 NACL 1,000 ML IV PRN ×2 (04:11→21:49)
[2022-09-30 06:18] LABS: BASOPHILS # (AUTO) 0.1 K/uL (0.0-0.2); BASOPHILS % (AUTO) 0.7 % (0.0-2.0); EOSINOPHILS % (AUTO) 2.5 % (0.0-6.0); HEMATOCRIT 25 % (33-45); LYMPHOCYTES # (AUTO) 1.8 K/uL (0.8-4.8); LYMPHOCYTES % (AUTO) 24.9 % (20.0-44.0); MEAN CORPUSCULAR HGB CONC 32 g/dl (31.0-36.0); MEAN CORPUSCULAR VOLUME 105 fL (82-100); MONOCYTES # (AUTO) 0.7 K/uL (0.1-1.30); MONOCYTES % (AUTO) 9.3 % (2.0-12.0); NEUTROPHILS # (AUTO) 4.6 K/uL (1.8-8.9); NEUTROPHILS % (AUTO) 62.6 % (43.0-81.0); PLATELET COUNT (AUTO) 276 K/uL (150-450); RED BLOOD CELL COUNT(AUTO) 2.37 MIL/uL (4.0-5.2); WHITE BLOOD COUNT (AUTO) 7.3 K/uL (4.3-11.0)
[2022-09-30 06:27] LABS: ALBUMIN 1.7 g/dL (3.4-5.0); BILIRUBIN,TOTAL 0.5 mg/dL (0.2-1.0); CALCIUM, SERUM 9.5 mg/dL (8.5-10.1); CREATININE 1.3 mg/dL (0.6-1.3); MAGNESIUM 1.8 mg/dL (1.8-2.4); POTASSIUM 3.6 mmol/L (3.5-5.1)
--- NOTE | 2022-09-30 06:47 | NUR ---
MS RN CLOSING NOTE PT IN BED, ASLEEP, NONVERBAL, O2 VIA NC @ 3L. NO SOB/DISTRESS NOTED. IV ACCESS ON VINICIUS MIDLINE INFUSING D5 1/2 NS @ 75 ML/HR, INTACT AND FLUSHING WELL. HAS BILATERAL SOFT RESTRAINTS IN PLACE. NPO AT THIS TIME DUE TO PEG PLACEMENT AFTER [address] LE. ALL DUE MEDS WERE GIVEN AND NEEDS ATTENDED. SKIN IS WARM AND DRY. SAFETY MEASURES IN PLACE: BED LOCKED AND IN LOWEST POSITION, CALL LIGHT WITHIN REACH, SIDE RAILS UP X3. ENDORSE TO ONCOMING NURSE FOR HYUN.
[2022-09-30] MEDS: LEVOTHYROXINE SODIUM 75 MCG TABLET PO SCH (07:00)
--- NOTE | 2022-09-30 07:10 | NUR ---
RN OPENING NOTE PT IS IN BED, ASLEEP, NONVERBAL, O2 VIA NC @ 3L. NO SOB/DISTRESS NOTED. IV ACCESS ON VINICIUS MIDLINE INFUSING D5 1/2 NS @ 75 ML/HR, INTACT AND FLUSHING WELL. HAS BILATERAL SOFT RESTRAINTS IN PLACE. NPO AT THIS TIME, AND 7AM ORAL MEDICATIONS SYNTHROID AND PROTONIX WERE NOT ADMINISTERED, PATIENT DID NOT PASS SWALLOW TEST, PEG PLACEMENT SCHEDULED AFTER [address] LE, CONSENTS FOR PROCEDURE AND ANESTHESIA, SIGNED AND IN PATIENTS CHART. SKIN IS WARM AND DRY. SAFETY MEASURES IN PLACE: BED LOCKED AND IN LOWEST POSITION, CALL LIGHT WITHIN REACH, SIDE RAILS UP X3. WILL CONTINUE TO MONITOR.
[2022-09-30] MEDS: PANTOPRAZOLE 40 MG TABLET.DR PO SCH (07:30)
[2022-09-30] MEDS: BENZTROPINE MESYLATE (1 MG) 1 MG TABLET PO SCH (08:18)
[2022-09-30] MEDS: CLOTRIMAZOLE 1% 15 GM TUBE TP SCH ×2 (08:19→17:58)
[2022-09-30] MEDS: BETHANECHOL CHLORIDE (25 MG) 25 MG TABLET PO SCH (08:19)
--- NOTE | 2022-09-30 08:20 | NUR ---
PATIENTS DAILY MEDICATION: SYNTHROID, PROTONIX, COGENTIN AND URECHOLINE WILL ADMINISTERED AFTER PEG PLACEMENT. PATIENT NPO NOW, FAILED SWALLOWING TEST.
[2022-09-30 09:07] LABS: HEPATITIS Be AB Positive (Negative)
--- NOTE | 2022-09-30 11:50 | NUR ---
PATIENTS BUTTOCKS NIX TREATED, CLEANED WITH SOAP AND WARM WATER, RINSED AND DRIED, LOTRIMIN APPLIED, FOLLOWED ZGUARD WITH FOAM DSG TO GLUTEAL CREASE.
--- NOTE | 2022-09-30 11:52 | NUR ---
WOUND CARE CONSULT/FOLLOW UP: PT PRESENTS WITH RASH TO PERINEUM AND BUTTOCKS WELL INCONTINENCE ASSOCIATED SKIN DAMAGE TO GLUTEAL CREASE, NOT ON A BONY AREA. PT NOTED TO BE HAVING LOOSE STOOL. RECOMMENDATIONS MADE FOR SKIN PROTECTION. DISCUSSED WITH NURSING STAFF AND CLOTH FRAMER. PT IS ON FIRST STEP ERICK FRY. IN AGREEMENT WITH PLAN OF CARE. Addendum: 09/30/22 at 1154 by YOLY WINTER WNDNU Amended: Links added.
[2022-09-30 12:00] VITALS: BP 113/93
[2022-09-30] MEDS ORDERED: ANESTHESIA TRAY IN PYXIS 1 EA TRAY MC ONE ×2 (14:12→14:53)
--- NOTE | 2022-09-30 17:45 | NUR ---
PATIENT TAKEN TO SURGERY FOR PEG PLACEMENT. PT REMAINED NPO SINCE MIDNIGHT FOR THE PROCEDURE. PT AWAKE, VS: B/P 129/66; TEMP 98.6; HR 62. NO S/S OF DISTRESS.
--- NOTE | 2022-09-30 18:30 | NUR ---
PATIENT BROUGHT BACK FROM PROCEDURE, AWAKE, VS:B/P 142/82; HR 67; TEMP 97.3; O2 SAT 95 ON 2L VIA NC. DRESSING INTACT, BANDAGE BELT AROUND THE STOMACH. SAFETY MEASURES IMPLEMENTED, BED IS LOCKED AND IN LOWEST POSITION, SOFT RESTRAINS IS ON.
--- NOTE | 2022-09-30 19:30 | NUR ---
PATIENT IS IN A BED, SOFT RESTRAINS IMPLEMENTED, D/T DESTRUCTION OF MED CARE FROM PT. G TUBE IN PLACE, PER OR ORDER, TUBE FEEDING NEEDS TO START FROM AM. WILL INDORSE TO THE MASTER ESTHETICIAN NURSE FOR HYUN.
[2022-09-30 20:00] VITALS: BP 165/83
[2022-10-01 04:00] VITALS: BP 120/50
[2022-10-01 07:28] LABS: ALBUMIN 1.8 g/dL (3.4-5.0); BILIRUBIN,TOTAL 0.5 mg/dL (0.2-1.0); CALCIUM, SERUM 10.1 mg/dL (8.5-10.1); CREATININE 1.1 mg/dL (0.6-1.3); MAGNESIUM 1.8 mg/dL (1.8-2.4); PHOSPHORUS 3.1 mg/dL (2.5-4.9); POTASSIUM 3.4 mmol/L (3.5-5.1); TOTAL PROTEIN, SERUM 6.2 g/dL (6.4-8.2)
[2022-10-01 07:38] LABS: BASOPHILS # (AUTO) 0.1 K/uL (0.0-0.2); BASOPHILS % (AUTO) 1.3 % (0.0-2.0); HEMATOCRIT 28 % (33-45); HEMOGLOBIN 8.7 g/dL (11.5-14.8); LYMPHOCYTES # (AUTO) 1.1 K/uL (0.8-4.8); LYMPHOCYTES % (AUTO) 14.8 % (20.0-44.0); MEAN CORPUSCULAR HGB CONC 31 g/dl (31.0-36.0); MEAN CORPUSCULAR VOLUME 104 fL (82-100); MONOCYTES # (AUTO) 0.7 K/uL (0.1-1.30); MONOCYTES % (AUTO) 9.6 % (2.0-12.0); NEUTROPHILS # (AUTO) 5.3 K/uL (1.8-8.9); NEUTROPHILS % (AUTO) 72.3 % (43.0-81.0); PLATELET COUNT (AUTO) 264 K/uL (150-450); RED BLOOD CELL COUNT(AUTO) 2.68 MIL/uL (4.0-5.2); WHITE BLOOD COUNT (AUTO) 7.3 K/uL (4.3-11.0)
[2022-10-01] MEDS: PANTOPRAZOLE 40 MG TABLET.DR PO SCH (08:00)
[2022-10-01] MEDS: LEVOTHYROXINE SODIUM 75 MCG TABLET PO SCH (08:00)
[2022-10-01] MEDS: BENZTROPINE MESYLATE (1 MG) 1 MG TABLET PO SCH (09:00)
[2022-10-01] MEDS: BETHANECHOL CHLORIDE (25 MG) 25 MG TABLET PO SCH (09:00)
[2022-10-01] MEDS: CLOTRIMAZOLE 1% 15 GM TUBE TP SCH ×2 (09:00→17:00)
[2022-10-01] MEDS ORDERED: JEVITY 1.2 CAL 1,000 ML BOTTLE GT PRN (09:30)
[2022-10-01] MEDS ORDERED: POTASSIUM CHLORIDE 20 MEQ POWDER PACKET NG SCH (11:30)
--- NOTE | 2022-10-01 11:51 | NUR ---
CIRA NICOLAS notified glucose 40's,held discharge caser up aware.
--- NOTE | 2022-10-01 11:55 | NUR ---
pt blood sugar 73 at 1155.
[2022-10-01] MEDS ORDERED: DEXTROSE 50%-WATER 50 ML DISP.SYRIN IVP ONE (12:00)
--- NOTE | 2022-10-01 13:13 | NUR ---
1309 bg is 143. pt asymptomatic. resting in bed comfortably. no acute changes
[2022-10-01] MEDS: BLOOD SUGAR DIAGNOSTIC 1 EACH STRIP IN SCH ×4 (15:00→23:58)
[2022-10-01 16:00] VITALS: BP 140/92
[2022-10-01] MEDS: IV D5/0.45 NACL 1,000 ML IV PRN (16:05)
--- NOTE | 2022-10-01 18:00 | NUR ---
bg 86
--- NOTE | 2022-10-01 19:47 | NUR ---
RN OPENING NOTES; RECEIVED PT IN BED SLEEPING BUT EASY TO AROUSED,NONVERBAL,MANUELITO WELL ON RM AIR SATTING 99%,NO SIGN SOB/DISTRESS NOTED,NO SIGN OF PAIN/DISCOMFORT AT THIS TIME,IV ACCESS ON VINICIUS ML WITH D5 I/2NS @75ML/HR INFUSING WELL,ON GTUBE FEEDING JEVITY 1.2 @ 45ML/HR MANUELITO WELL,NO RESIDUAL NOTED,HOB ELEVATED AT ALL TIME,SAFETY MEASURE IN PLACE,CALL LIGHT WITHIN REACH,WILL CONTINUE TO MONITOR.
[2022-10-01 20:00] VITALS: BP 150/83
[2022-10-02] MEDS: BLOOD SUGAR DIAGNOSTIC 1 EACH STRIP IN SCH ×5 (03:22→14:02)
[2022-10-02 04:00] VITALS: BP 160/83
[2022-10-02] MEDS: LEVOTHYROXINE SODIUM 75 MCG TABLET PO SCH (06:06)
--- NOTE | 2022-10-02 06:19 | NUR ---
RN CLOSING NOTES; PT IN BED SLEEPING BUT EASY TO AROUSED,NONVERBAL,MANUELITO WELL ON RM AIR SATTING 98%,NO SIGN SOB/DISTRESS NOTED,NO SIGN OF PAIN/DISCOMFORT DURING SHIFT,DUE MEDS GIVEN ORDER,ALL NEEDS ATTENDED,,IV ACCESS ON VINICIUS ML WITH D5 I/2NS @75ML/HR INFUSING WELL,ON GTUBE FEEDING JEVITY 1.2 @ 45ML/HR MANUELITO WELL,NO RESIDUAL NOTED,KEPT HOB ELEVATED AT ALL TIME,REPOSITION Q2HRS MANUELITO WELL,KEPT PT CLEANED AND DRY AT ALL TIME,SAFETY MEASURE IN PLACE,CALL LIGHT WITHIN REACH,WILL ENDORSED TO NEXT SHIFT.
[2022-10-02 06:48] LABS: CALCIUM, SERUM 9.9 mg/dL (8.5-10.1); CREATININE 1.2 mg/dL (0.6-1.3); POTASSIUM 4.1 mmol/L (3.5-5.1)
--- NOTE | 2022-10-02 07:30 | NUR ---
OPENING NOTES; RECEIVED PT IN BED SLEEPING BUT EASY TO AROUSED,NONVERBAL,MANUELITO WELL ON RM AIR SATTING 99%,NO SIGN SOB/DISTRESS NOTED,NO SIGN OF PAIN/DISCOMFORT AT THIS TIME,IV ACCESS ON VINICIUS ML SALINE LOCK,ON GTUBE FEEDING JEVITY 1.2 @ 45ML/HR MANUELITO WELL,NO RESIDUAL NOTED,HOB ELEVATED AT ALL TIME,SAFETY MEASURE IN PLACE,CALL LIGHT WITHIN REACH,WILL CONTINUE TO MONITOR.
[2022-10-02] MEDS: PANTOPRAZOLE 40 MG TABLET.DR PO SCH (08:02)
[2022-10-02] MEDS: BENZTROPINE MESYLATE (1 MG) 1 MG TABLET PO SCH (08:27)
[2022-10-02] MEDS: BETHANECHOL CHLORIDE (25 MG) 25 MG TABLET PO SCH (08:28)
[2022-10-02] MEDS: CLOTRIMAZOLE 1% 15 GM TUBE TP SCH (08:28)
--- NOTE | 2022-10-02 11:43 | NUR ---
GIVE REPORT TO ASPEN SEGURA NURSE IN [facility].
--- NOTE | 2022-10-02 11:52 | NUR ---
PATIENT IS BEING DISCHARGED TODAY TO [facility].
[2022-10-02 12:00] VITALS: BP 137/59
[2022-10-02] MEDS ORDERED: LACT-209 GT (12:44)
--- NOTE | 2022-10-02 15:15 | NUR ---
PATIENT IS DISCHARGED VIA AMBULANCE [facility], PATIENT IS IN STABLE CONDITION. FEEDING VIA G TUBE IS DISCONTINUE.
== END 2022-10-02 15:15 | DRG 871 ==
LOC: ER 13:45 → TELE1 16:19 → MEDSG1 09-27 10:00
PROVIDERS: ATTEND Nurse Practitioner Family
PROC: 05HB33Z Insertion of Infusion Device into Right Basilic Vein, Percutaneous Approach (ICD-10-PCS; principal; 2022-09-25)
PROC: 0DH63UZ Insertion of Feeding Device into Stomach, Percutaneous Approach (ICD-10-PCS; 2022-09-30)
DX: A41.9 Sepsis, unspecified organism (principal); J15.6 Pneumonia due to other Gram-negative bacteria; J69.0 Pneumonitis due to inhalation of food and vomit; N17.0 Acute kidney failure with tubular necrosis; J96.21 Acute and chronic respiratory failure with hypoxia; E44.0 Moderate protein-calorie malnutrition; E87.0 Hyperosmolality and hypernatremia; B18.1 Chronic viral hepatitis B without delta-agent; E87.20 Acidosis, unspecified; J98.11 Atelectasis; G40.909 Epilepsy, unspecified, not intractable, without status epilepticus; Z20.822 Contact with and (suspected) exposure to COVID-19; K29.70 Gastritis, unspecified, without bleeding; R13.10 Dysphagia, unspecified; E78.5 Hyperlipidemia, unspecified; I11.0 Hypertensive heart disease with heart failure; I50.9 Heart failure, unspecified; G80.8 Other cerebral palsy; G80.9 Cerebral palsy, unspecified; Q90.9 Down syndrome, unspecified; Z95.0 Presence of cardiac pacemaker; Z87.01 Personal history of pneumonia (recurrent); K21.9 Gastro-esophageal reflux disease without esophagitis; Z79.899 Other long term (current) drug therapy; D50.9 Iron deficiency anemia, unspecified; R74.01 Elevation of levels of liver transaminase levels; E88.09 Other disorders of plasma-protein metabolism, not elsewhere classified; E03.9 Hypothyroidism, unspecified; K80.20 Calculus of gallbladder without cholecystitis without obstruction; K82.8 Other specified diseases of gallbladder; K76.9 Liver disease, unspecified; E16.2 Hypoglycemia, unspecified; E87.6 Hypokalemia; Y95 Nosocomial condition; Z87.440 Personal history of urinary (tract) infections
CPT/HCPCS: 36415; 43246; 71045-TC; 76700-TC; 80048-TC; 80053-TC; 80061-TC; 80076-TC; 81001; 82272-TC; 82962-TC; 83605-TC; 83735-TC; 83880; 84100-TC; 84443-TC; 84484-TC; 85025-TC; 85730-TC; 86704; 86707; 86803; 87040-TC; 87081-TC; 87086-TC; 87340; 87350; 87517; 87806; 92526; 92611-TC; 93307-TC; 94799-TC; A4223; A6253; C9803; G0378; J0692; J1650; J2543; J3370; J3480; J3490; J7030; J7042; J7060